=== PATIENT | male | born 1950 | race Caucasian/White ===

== ENCOUNTER 2016-11-22 19:23 | Emergency (ER) | payer MEDICARE ==
--- NOTE | 2016-11-27 19:22 | ER ---
ADMIT: 11/22/2016 RM/LOC: ER [facility] MR#: [id number] [id number] [id number] [place] [address] Emergency Room Report SEX: M AGE: 66 : 1950 DATE: 11/22/2016 The patient is a 66-year-old, Amharic-speaking male, complaining of left facial weakness since Tuesday. Denies any headache, chest pain, shortness of breath, or prior history of stroke. Exam remarkable for left Mast's palsy, otherwise negative. CT head negative. Lab unremarkable. EKG, sinus rhythm without ST-T or Q-wave change. Chest x-ray, negative. Advised valacyclovir 1 g t.i.d. x7 days, first dose in department; prednisone 80 mg p.o. in department and 80 mg taper over the next [address] days. Follow up with Dr[address] Conte this week. Keyur Dumont MD/ mendez JOB #: [id number] CC: Keyur Dumont MD, Attending Physician Latia Conte MD, Family Physician Latia Conte MD
== END 2016-11-22 20:40 | disposition home or self-care (01) ==
LOC: ER 19:23
DX: G51.0 Bell's palsy (principal); Z79.899 Other long term (current) drug therapy